=== PATIENT | male | born 1965 | race Caucasian/White ===

== ENCOUNTER 2023-08-22 08:38 | Emergency (ER) | payer BC, SELFPAY ==
[2023-08-22 08:52] VITALS: BP 154/84
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
[2023-08-22 10:44] VITALS: BP 123/66
== END 2023-08-22 10:45 | disposition home or self-care (01) ==
LOC: EMR 08:38
PROVIDERS: EMERGENCY PHYSICIAN Student in an Organized Health Care Education/Training Program
DX: S01.81XA Laceration without foreign body of other part of head, initial encounter (principal); S61.011A Laceration without foreign body of right thumb without damage to nail, initial encounter; S70.312A Abrasion, left thigh, initial encounter; S62.502B Fracture of unspecified phalanx of left thumb, initial encounter for open fracture; W01.0XXA Fall on same level from slipping, tripping and stumbling without subsequent striking against object, initial encounter; Y93.55 Activity, bike riding
CPT/HCPCS: 99283; 12051; 12001; 73030; 73130

== ENCOUNTER → 2023-08-29 15:09 | Outpatient (REF) | payer BC, SELFPAY | LOC: HWRAD 15:09 | PROVIDERS: ATTENDING PHYSICIAN Nurse Practitioner Family | DX: M25.522 Pain in left elbow (principal) | CPT/HCPCS: 73080 ==